=== PATIENT | male | born 2000 | race Caucasian/White ===

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

== ENCOUNTER 2018-12-21 17:01 | Emergency (ER) | payer BC ==
[~2018-12-21] VITALS: Ht 182.8 cm; Wt 89.4 kg
[~2018-12-21 17:01] MED LIST changes: +Motrin,Rufen800 MG PO
[2018-12-21 17:03] VITALS: BP 131/65
[2018-12-21] MEDS ORDERED: VIBRAMYCIN100 MG PO (17:31)
== END 2018-12-21 17:45 | disposition home or self-care (01) ==
LOC: ED 17:01
DX: A69.20 Lyme disease, unspecified (principal)

== ENCOUNTER → 2022-08-07 | Outpatient (CLI) | payer BC, OTHER ==
[~2022-08-07] MED LIST changes: +VIBRAMYCIN100 MG PO
[2022-08-07 11:55] LABS: HEMATOCRIT 48.1 % (42.0-52.0); MEAN CORPUSCULAR HGB CONC 33.7 g/dl (33.0-37.0); MEAN PLATELET VOLUME 8.9 fl (9.6-12.3); RED BLOOD COUNT 5.59 10*6/uL (4.50-5.90); RED CELL DISTRI WIDTH 11.3 % (0-14.5); WHITE BLOOD COUNT 4.1 10*3/uL (4.8-10.8)
[2022-08-07 12:28] LABS: ALKALINE PHOSPHATASE 49 U/L (46-116); BUN 15 mg/dl (9-23); CHLORIDE 108 mmol/L (98-107); CHOLESTEROL 142 mg/dL (<200); LDL CHOLESTEROL 86 mg/dL (9-159); POTASSIUM 4.2 mmol/L (3.4-5.1); SGPT/ALT 10 U/L (10-49); TOTAL PROTEIN 7.4 gm/dL (6.0-8.0); TRIGLYCERIDES 108 mg/dl (<150)
[2022-08-08 05:06] LABS: HEPATITIS B SURFACE AB Reactive (.); HEPATITIS B SURFACE AG Negative (Negative)
[2022-08-08 07:07] LABS: MUMPS ANTIBODIES, IGG 23.2 AU/mL (Immune >10.9); RUBEOLA AB IGG >300.0 AU/mL (Immune >16.4); VARICELLA-ZOSTER IGG 527 index (Immune >165)
== END | disposition home or self-care (01) ==
LOC: LAB 11:23
PROVIDERS: ATTEND Family Medicine
DX: Z02.2 Encounter for examination for admission to residential institution (principal)

== ENCOUNTER 2022-09-22 12:47 | Emergency (ER) | payer BC, OTHER ==
[~2022-09-22] VITALS: Ht 177.8 cm; Wt 79.4 kg
[2022-09-22 13:04] VITALS: BP 126/84
== END 2022-09-22 13:13 | disposition home or self-care (01) ==
LOC: ED 12:47
DX: H10.9 Unspecified conjunctivitis (principal)

== ENCOUNTER 2023-10-06 13:52 | Emergency (ER) | payer BC ==
[~2023-10-06] VITALS: Ht 177.8 cm; Wt 81.6 kg
[2023-10-06 14:03] VITALS: BP 125/84
[2023-10-06] MEDS ORDERED: SODIUM CHLORIDE 0.9% 1,000 ML IV ONE (14:20)
[2023-10-06] MEDS ORDERED: Ondansetron Hydrochloride 4 MG/2 ML VIAL IV ONE (14:20)
[2023-10-06 14:40] LABS: BASO # 0.1 10*3/uL (0.0-0.1); BASO % 1.2 % (0.0-1.0); EOS # 0.2 10*3/uL (0.0-0.4); EOS % 3.7 % (1.0-4.0); HEMATOCRIT 52.9 % (42.0-52.0); LYMPH # 1.8 10*3/uL (1.3-4.4); LYMPH % 34.5 % (27.0-41.0); MEAN CELL VOLUME 86.3 fl (80.0-94.0); MEAN CORPUSCULAR HGB 28.9 pg (27.0-31.0); MEAN CORPUSCULAR HGB CONC 33.5 g/dl (33.0-37.0); MEAN PLATELET VOLUME 8.5 fl (9.6-12.3); MONO # 0.8 10*3/uL (0.1-1.0); MONO % 15.3 % (3.0-9.0); NEUT # 2.3 10*3/uL (2.3-7.9); NEUT % 45.1 % (47.0-73.0); PLATELET COUNT AUTOMATED 279 10*3/uL (130-400); RED BLOOD COUNT 6.13 10*6/uL (4.50-5.90); RED CELL DISTRI WIDTH 12.1 % (0-14.5); WHITE BLOOD COUNT 5.2 10*3/uL (4.8-10.8)
[2023-10-06 14:57] LABS: BUN 12 mg/dl (9-23); CHLORIDE 104 mmol/L (98-107); POTASSIUM 4.4 mmol/L (3.4-5.1)
[2023-10-06] MEDS ORDERED: Ondansetron4 MG PO (15:09)
== END 2023-10-06 15:14 | disposition home or self-care (01) ==
LOC: ED 13:52
PROVIDERS: Nurse Practitioner Family
DX: R11.2 Nausea with vomiting, unspecified (principal); G47.00 Insomnia, unspecified; F41.9 Anxiety disorder, unspecified; F12.10 Cannabis abuse, uncomplicated; F14.10 Cocaine abuse, uncomplicated; F19.10 Other psychoactive substance abuse, uncomplicated

== ENCOUNTER → 2023-11-07 | Outpatient (CLI) | payer BC ==
[~2023-11-07] MED LIST changes: +Ondansetron4 MG PO
[2023-11-07 10:37] LABS: MEAN CELL VOLUME 85.8 fl (80.0-94.0); MEAN CORPUSCULAR HGB 29.5 pg (27.0-31.0); MEAN CORPUSCULAR HGB CONC 34.3 g/dl (33.0-37.0); MEAN PLATELET VOLUME 9.2 fl (9.6-12.3); RED BLOOD COUNT 5.36 10*6/uL (4.50-5.90); RED CELL DISTRI WIDTH 11.9 % (0-14.5)
[2023-11-07 11:29] LABS: ALKALINE PHOSPHATASE 46 U/L (46-116); BUN 9 mg/dl (9-23); CHLORIDE 106 mmol/L (98-107); CHOLESTEROL 154 mg/dL (<200); LDL CHOLESTEROL 82 mg/dL (9-159); POTASSIUM 3.5 mmol/L (3.4-5.1); SGPT/ALT 18 U/L (5-49); TOTAL PROTEIN 7.2 gm/dL (6.0-8.0); TRIGLYCERIDES 135 mg/dl (<150)
[2023-11-07 11:32] LABS: VITAMIN D, 25-HYDROXY 53.5 ng/mL (30-100)
== END | disposition home or self-care (01) ==
LOC: LAB 09:42
PROVIDERS: ATTEND Family Medicine
DX: Z13.220 Encounter for screening for lipoid disorders (principal); E55.9 Vitamin D deficiency, unspecified; R53.83 Other fatigue; Z00.00 Encounter for general adult medical examination without abnormal findings